=== PATIENT | female | born 1995 | race Caucasian/White ===

== ENCOUNTER 2016-10-01 20:36 | Emergency (ER) | payer OTHER ==
[2016-10-01] MEDS ORDERED: ACETAMINOPHEN TAB 500 MG TAB PO STA (21:52)
[2016-10-01] MEDS ORDERED: IBUPROFEN 800 MG TAB PO STA (21:52)
[2016-10-01] MEDS ORDERED: ONDANSETRON ODT 4 MG TAB PO STA (21:52)
--- NOTE | 2016-10-01 21:57 | ED ---
General Adult HPI - General Chief complaint: Nausea/Vomiting/Diarrhea Stated complaint: Vomiting Time Seen by Provider: 10/01/16 21:20 Source: patient, RN notes reviewed, old records reviewed Mode of arrival: ambulatory Limitations: no limitations - History of Present Illness Initial comments: This is a 21-year-old female the ER for multiple complaints. Patient coming in with a main complaint Pacerone fever. Patient states she had fever yesterday also as well as nausea vomiting and diarrhea. No significant sick contacts or travel history. Patient has no specific medical history aside for thyroid disease. No blood in her vomit or stool. Patient states she also has mild cramping mild abdominal pain and recent vaginal bleeding. She states she has not had a period in over a year is been being evaluated on the outpatient basis by her family doctor for reason for amenorrhea. - Related Data Home Medications Medication Instructions Recorded Confirmed Acyclovir 400 mg PO BID PRN 04/28/16 10/01/16 Citalopram Hydrobromide [CeleXA] 40 mg PO DAILY 04/28/16 10/01/16 EPINEPHrine [Epipen 2-Russ] 0.3 mg IM ONCE PRN 04/28/16 10/01/16 Acetaminophen Tab [Tylenol Tab] 650 mg PO Q6H PRN 10/01/16 10/01/16 Ascorbic Acid [Vitamin C] 500 mg PO DAILY 10/01/16 10/01/16 Calcium Carbonate [Calcium] 600 mg PO DAILY 10/01/16 10/01/16 Garcinia Cambogia 1 tab PO DAILY 10/01/16 10/01/16 Magnesium Oxide 400 mg PO DAILY 10/01/16 10/01/16 Previous Rx's Medication Instructions Recorded Nitrofurantoin Monohyd/M-Cryst 100 mg PO Q12HR #14 cap 10/01/16 [Macrobid] Ondansetron [Zofran] 4 mg PO Q8HR PRN #30 tab 10/01/16 Allergies Allergy/AdvReac Type Severity Reaction Status Date / Time Bleach (Sodium Hypochlorite) Allergy Rash/Hives Verified 10/01/16 21:11 erythromycin base Allergy Rash/Hives Verified 10/01/16 21:11 [Erythromycin Base] Penicillins Allergy Anaphylaxis Verified 10/01/16 21:11 Review of Systems ROS Statement: Those systems with pertinent positive or pertinent negative responses have been documented in the HPI. ROS Other: All systems not noted in ROS Statement are negative. Past Medical History Past Medical History: Thyroid Disorder History of Any Multi-Drug Resistant Organisms: None Reported Past Surgical History: No Surgical Hx Reported Past Psychological History: Bipolar, Depression Smoking Status: Current every day smoker Past Alcohol Use History: Rare Past Drug Use History: Marijuana General Exam Limitations: no limitations General appearance: alert, in no apparent distress, obese Head exam: Present: atraumatic, normocephalic, normal inspection Eye exam: Present: normal appearance, PERRL, EOMI. Absent: scleral icterus, conjunctival injection, periorbital swelling ENT exam: Present: normal exam, mucous membranes moist Neck exam: Present: normal inspection. Absent: tenderness, meningismus, lymphadenopathy Respiratory exam: Present: normal lung sounds bilaterally. Absent: respiratory distress, wheezes, rales, rhonchi, stridor Cardiovascular Exam: Present: regular rate, normal rhythm, normal heart sounds. Absent: systolic murmur, diastolic murmur, rubs, gallop, clicks GI/Abdominal exam: Present: soft, normal bowel sounds. Absent: distended, tenderness, guarding, rebound, rigid Extremities exam: Present: normal inspection, full ROM, normal capillary refill. Absent: tenderness, pedal edema, joint swelling, calf tenderness Back exam: Present: normal inspection Neurological exam: Present: alert, oriented X3, CN II-XII intact Psychiatric exam: Present: normal affect, normal mood Skin exam: Present: warm, dry, intact, normal color. Absent: rash Course Vital Signs 10/01/16 10/01/16 20:40 23:58 Temperature 98.2 F 98.1 F Pulse Rate 104 H 75 Respiratory 16 18 Rate Blood Pressure 181/103 161/85 O2 Sat by Pulse 96 98 Oximetry - Reevaluation(s) Reevaluation #1: 10/01/16 21:57 Patient's improvement with symptomatic control Reevaluation #2: 10/01/16 22:45 At this time patient's symptoms are resolved, no abdominal pain Medical Decision Making - Medical Decision Making 21 female ER for evaluation nausea vomiting diarrhea, fever yesterday. Patient' s fevers control symptoms improved tolerating oral intake. Patient has no abdominal pain on exam, ultrasound and x-ray are negative for acute disease. Patient with urinary tract infection, which is appropriately - Lab Data Lab Results 10/01/16 10/01/16 Range/Units 21:41 21:41 Urine Color Yellow Urine Appearance Cloudy H (Clear) Urine pH 7.0 (5.0-8.0) Ur Specific [place] 1.016 (1.001-1.035) Urine Protein Trace H (Negative) Urine Glucose (UA) Negative (Negative) Urine Ketones Negative (Negative) Urine Blood Negative (Negative) Urine Nitrate Negative (Negative) Urine Bilirubin Negative (Negative) Urine Urobilinogen 2.0 (<2.0) mg/dL Ur Leukocyte Esterase Moderate H (Negative) Urine RBC 2 (0-5) /hpf Urine WBC 46 H (0-5) /hpf Ur Squamous Epith Cells 2 (0-4) /hpf Amorphous Sediment Rare H (None) /hpf Urine Mucus Occasional H (None) /hpf Urine HCG, Qual Not Detected (Not Detectd) - Radiology Data Radiology results: report reviewed (X-ray bowel surgeries a chest negative for acute disease, ultrasound negative for acute disease), image reviewed Disposition Clinical Impression: Gastroenteritis, UTI (urinary tract infection), Nausea, DUB (dysfunctional uterine bleeding) Disposition: HOME SELF-CARE Condition: Good Instructions: Urinary Tract Infection in Women (ED), Dysfunctional Uterine Bleeding (ED) Prescriptions: Nitrofurantoin Monohyd/M-Cryst [Macrobid] 100 mg PO Q12HR #14 cap Ondansetron [Zofran] 4 mg PO Q8HR PRN #30 tab PRN Reason: Nausea Referrals: Hiram Peterson DO [Primary Care Provider] - 1-2 days
[2016-10-01 22:15] LABS: Amorphous Sediment,Urine Rare /hpf; Appearance,Urine Cloudy (Clear); Bilirubin,Urine Negative (Negative); Glucose,Urine (UA) Negative (Negative); Ketones,Urine Negative (Negative); Leukocyte Esterase,Urine Moderate (Negative); Mucus,Urine Occasional /hpf; Nitrite,Urine Negative (Negative); Particle Count 4610; Protein,Urine Trace (Negative); RBC,Urine 2 /hpf (0-5); Specific Gravity,Urine 1.016 (1.001-1.035); Squamous Epithelial Cell,Urine 2 /hpf (0-4); UA Billing (MACRO vs. MICRO) MICRO; WBC,Urine 46 /hpf (0-5)
--- NOTE | 2016-10-01 22:34 | XR ---
EXAMINATION TYPE: XR abdomen acute w cxr DATE OF EXAM: 10/01/2016 10:27 PM COMPARISON: Chest radiographs 04/17/2016 and abdominal radiographs 07/18/2014. HISTORY: Nausea vomiting and diarrhea TECHNIQUE: Single view of the chest and 2 views of the abdomen are submitted. FINDINGS: Single view of the chest fails demonstrate evidence for acute pulmonary disease. There is no evidence for pneumoperitoneum. The bowel gas pattern is unremarkable as there is air throughout nondilated small and large bowel. M ild amount of fecal material is suggested in the colon. No sizeable air fluid levels. No mass effects are seen. No unusual calcifications. Spina bifida occulta is suggested in the sacrum. IMPRESSION: Unremarkable study
[2016-10-01] MEDS ORDERED: NITROFURANTOIN MONOHYD/M-CRYST 100 MG CAP PO STA (22:43)
[2016-10-01 23:59] VITALS: BP 161/85; PULSE 75; RESP 18; TEMP 98.1
--- NOTE | 2016-10-02 00:02 | US ---
EXAMINATION TYPE: US pelvic complete DATE OF EXAM: 10/01/2016 11:11 PM COMPARISON: NONE CLINICAL HISTORY: No cycles for 1 year, spotting today, large body habitus. TECHNIQUE: TV Date of LMP: 1 year ago EXAM MEASUREMENTS: Uterus: 7.1 x 4.1 x 2.6cm Endometrial Stripe: 0.9cm Right Ovary: 4.5 x 2.6 x 2.4cm Left Ovary: 4.7 x 2.3 x 2.8cm FINDINGS: 1. Uterus: Anteverted, nabothian cyst within cervix, otherwise wnl 2. Endometrium: wnl 3. Right Ovary: wnl 4. Left Ovary: wnl Spectral, color and waveform doppler imaging shows good arterial and venous flow within the ovaries ; there is no evidence for ovarian torsion. 5. Bilateral Adnexa: wnl 6. Posterior cul-de-sac: wnl IMPRESSION: Essentially normal pelvic ultrasound study.
== END 2016-10-02 00:28 | disposition home or self-care (01) ==
LOC: EC 20:36
DX: K52.9 Noninfective gastroenteritis and colitis, unspecified (principal); N39.0 Urinary tract infection, site not specified; N93.8 Other specified abnormal uterine and vaginal bleeding; F32.9 Major depressive disorder, single episode, unspecified; E66.9 Obesity, unspecified; F17.200 Nicotine dependence, unspecified, uncomplicated; Z88.1 Allergy status to other antibiotic agents; Z88.0 Allergy status to penicillin; Z91.048 Other nonmedicinal substance allergy status; Z79.899 Other long term (current) drug therapy
CPT/HCPCS: 74022; 76830; 81001; 81025; 87086; 93975; 99284

== ENCOUNTER 2016-11-20 01:20 | Emergency (ER) | payer OTHER ==
[2016-11-20] MEDS ORDERED: ACETAMINOPHEN TAB 500 MG TAB PO STA (02:20)
[2016-11-20] MEDS ORDERED: ONDANSETRON 4 MG ODT STARTER PACK 2 TAB BTL PO STA (02:20)
--- NOTE | 2016-11-20 03:28 | ED ---
ENT HPI - General Chief complaint: ENT Stated complaint: sore throat,cough,vomiting Time Seen by Provider: 11/20/16 02:08 Source: patient, RN notes reviewed Mode of arrival: ambulatory Limitations: no limitations - History of Present Illness Initial comments: Patient is a 21-year-old [employer] chief complaint of sinus congestion for approximately 2 days. She does report that she's had a mild fever and a productive cough. She states that she did vomit one time earlier today. Patient has a past medical history of bipolar and depression. She denies any surgical history or history of asthma. She states that she is a smoker. She denies any Motrin or Tylenol today. She states that she did use a nasal decongestant spray yesterday with some mild relief. Patient denies any recent fever, chills, shortness of breath, chest pain, back pain, abdominal pain, nausea vomiting, numbness or tingling, dysuria or hematuria, constipation or diarrhea, headaches or visual changes, or any other current symptoms. - Related Data Home Medications Medication Instructions Recorded Confirmed Acyclovir 400 mg PO BID PRN 04/28/16 10/01/16 Citalopram Hydrobromide [CeleXA] 40 mg PO DAILY 04/28/16 10/01/16 EPINEPHrine [Epipen 2-Russ] 0.3 mg IM ONCE PRN 04/28/16 10/01/16 Acetaminophen Tab [Tylenol Tab] 650 mg PO Q6H PRN 10/01/16 10/01/16 Ascorbic Acid [Vitamin C] 500 mg PO DAILY 10/01/16 10/01/16 Calcium Carbonate [Calcium] 600 mg PO DAILY 10/01/16 10/01/16 Garcinia Cambogia 1 tab PO DAILY 10/01/16 10/01/16 Magnesium Oxide 400 mg PO DAILY 10/01/16 10/01/16 Previous Rx's Medication Instructions Recorded Nitrofurantoin Monohyd/M-Cryst 100 mg PO Q12HR #14 cap 10/01/16 [Macrobid] Ondansetron [Zofran] 4 mg PO Q8HR PRN #30 tab 10/01/16 Fluticasone Nasal [place] [Flonase 2 spr EA NOSTRIL DAILY #1 bottle 11/20/16 Nasal [place]] guaiFENesin-DM 600/30MG [Mucinex 1 each PO Q12HR #14 tab.er.12h 11/20/16 Dm] methylPREDNISolone Dose Pack 4 mg PO DIRECTED #21 package 11/20/16 [Medrol Dose Pack] Allergies Allergy/AdvReac Type Severity Reaction Status Date / Time Bleach (Sodium Hypochlorite) Allergy Rash/Hives Verified 11/20/16 01:26 erythromycin base Allergy Rash/Hives Verified 11/20/16 01:26 [Erythromycin Base] Penicillins Allergy Anaphylaxis Verified 11/20/16 01:26 Review of Systems ROS Statement: Those systems with pertinent positive or pertinent negative responses have been documented in the HPI. ROS Other: All systems not noted in ROS Statement are negative. Past Medical History Past Medical History: Thyroid Disorder History of Any Multi-Drug Resistant Organisms: None Reported Past Surgical History: No Surgical Hx Reported Past Psychological History: Bipolar, Depression Smoking Status: Current every day smoker Past Alcohol Use History: Rare Past Drug Use History: Marijuana General Exam - General Exam Comments Initial Comments: Well-appearing 21-year-old female. No acute distress. Limitations: no limitations General appearance: alert, in no apparent distress Head exam: Present: atraumatic, normocephalic, normal inspection Eye exam: Present: normal appearance, PERRL, EOMI. Absent: scleral icterus, conjunctival injection, periorbital swelling ENT exam: Present: normal exam, normal oropharynx, mucous membranes moist, TM's normal bilaterally, other (Rhinorrhea. Sinus congestion.) Neck exam: Present: normal inspection. Absent: tenderness, meningismus, lymphadenopathy Respiratory exam: Present: normal lung sounds bilaterally. Absent: respiratory distress, wheezes, rales, rhonchi, stridor Cardiovascular Exam: Present: regular rate, normal rhythm, normal heart sounds. Absent: systolic murmur, diastolic murmur, rubs, gallop, clicks GI/Abdominal exam: Present: soft, normal bowel sounds. Absent: distended, tenderness, guarding, rebound, rigid Extremities exam: Present: normal inspection, full ROM, normal capillary refill. Absent: tenderness, pedal edema, joint swelling, calf tenderness Back exam: Present: normal inspection Neurological exam: Present: alert, oriented X3, CN II-XII intact Psychiatric exam: Present: normal affect, normal mood Skin exam: Present: warm, dry, intact, normal color. Absent: rash Course Vital Signs 11/20/16 01:23 Temperature 98.6 F Pulse Rate 102 H Respiratory 20 Rate Blood Pressure 169/94 O2 Sat by Pulse 97 Oximetry Medical Decision Making - Medical Decision Making Patient is a 29-year-old female chief complaint of sinus congestion and nonproductive cough for approximately 2 days. Chest x-ray was reviewed and negative for any acute process. Patient was given a dose of Zofran and Tylenol. Patient influenza and rapid strep are currently pending. Patient's rapid strep and influenza are negative. Given the duration of symptoms is that patient has a viral upper respiratory infection. I will write the patient for recent and and advised her to follow up with primary care physician. I will write the patient for a Medrol Dosepak and flonase. Patient understands treatment plan will comply. Return parameters were discussed. I did write the patient a note for work. - Lab Data Lab Results 11/20/16 11/20/16 Range/Units 02:30 02:30 Influenza Type A RNA Not Detected (Not Detectd) Influenza Type B (PCR) Not Detected (Not Detectd) Group A Strep Rapid Negative (Negative) Disposition Clinical Impression: Upper respiratory infection Disposition: HOME SELF-CARE Condition: Good Instructions: Upper Respiratory Infection (ED) Additional Instructions: Patient advised to rest, increase fluids and to complete prescriptions as directed. Follow-up with primary care physician if symptoms continue persist in 1-2 days. Return to the emergency department if any alarming signs or symptoms occur. Prescriptions: Fluticasone Nasal [place] [Flonase Nasal [place]] 2 spr EA NOSTRIL DAILY #1 bottle guaiFENesin-DM 600/30MG [Mucinex Dm] 1 each PO Q12HR #14 tab.er.12h methylPREDNISolone Dose Pack [Medrol Dose Pack] 4 mg PO DIRECTED #21 package Referrals: Hiram Peterson DO [Primary Care Provider] - 1-2 days Time of Disposition: 03:29
[2016-11-20 03:51] VITALS: BP 152/87; PULSE 93; RESP 18; TEMP 98.4
--- NOTE | 2016-11-20 14:18 | XR ---
EXAM: XR Chest, 2 Views. CLINICAL HISTORY: Reason: Pain TECHNIQUE: Frontal and lateral views of the chest. COMPARISON: Chest radiography 04/07/16 FINDINGS: Lungs: Unremarkable. No consolidation. Pleural space: Unremarkable. No pneumothorax. Heart: Unremarkable. No cardiomegaly. Mediastinum: Unremarkable. Bones/joints: Unremarkable. IMPRESSION: Normal chest
== END 2016-11-20 03:51 | disposition home or self-care (01) ==
LOC: EC 01:20
DX: J06.9 Acute upper respiratory infection, unspecified (principal); R11.10 Vomiting, unspecified; F31.9 Bipolar disorder, unspecified; F17.200 Nicotine dependence, unspecified, uncomplicated; Z88.0 Allergy status to penicillin; Z88.1 Allergy status to other antibiotic agents; Z79.899 Other long term (current) drug therapy
CPT/HCPCS: 87081; 87430; 87502; 71020; 99284; S0119

== ENCOUNTER 2017-01-10 00:37 | Emergency (ER) | payer OTHER ==
[2017-01-10] MEDS ORDERED: KETOROLAC 30 MG/ML 1 ML VIAL IVP STA (00:53)
[2017-01-10] MEDS ORDERED: diphenhydrAMINE 50 MG/ML 1 ML VIAL IVP STA (00:53)
[2017-01-10] MEDS ORDERED: METOCLOPRAMIDE 5 MG/ML 2 ML VIAL IVP STA (00:53)
[2017-01-10] MEDS ORDERED: SODIUM CHLORIDE 0.9% 1,000 ML IV ONE (00:53)
--- NOTE | 2017-01-10 00:56 | ED ---
Headache HPI - General Chief Complaint: Headache Stated Complaint: headache Time Seen by Provider: 01/10/17 00:45 Mode of arrival: ambulatory Limitations: no limitations - History of Present Illness Initial Comments: 21-year-old female patient presents emergency department today for complaints of migraine headache that started 6 days ago. Patient states that she does have a history of migraine headaches but this one has lasted longer and is more painful than her previous headaches. Patient is having some nausea and some photosensitivity with this. Patient states the pain is all over and radiates down into her neck. Patient denies any limits in range of motion to the neck. She reports taking Tylenol, Motrin, caffeine pills, using hot and cold packs, and massage without relief of symptoms. Patient denies any fever, chills, nasal congestion, sore throat, cough, dizziness, or weakness. Patient denies any numbness or tingling anywhere. Patient denies any blurred or double vision. - Related Data Home Medications Medication Instructions Recorded Confirmed Citalopram Hydrobromide [CeleXA] 40 mg PO DAILY 04/28/16 01/10/17 EPINEPHrine [Epipen 2-Russ] 0.3 mg IM ONCE PRN 04/28/16 01/10/17 Acetaminophen Tab [Tylenol Tab] 650 mg PO Q6H PRN 10/01/16 01/10/17 Ascorbic Acid [Vitamin C] 500 mg PO DAILY 10/01/16 01/10/17 Calcium Carbonate [Calcium] 600 mg PO DAILY 10/01/16 01/10/17 Garcinia Cambogia 1 tab PO DAILY 10/01/16 01/10/17 Magnesium Oxide 400 mg PO DAILY 10/01/16 01/10/17 metFORMIN HCL [Glucophage] 850 mg PO BID 01/10/17 01/10/17 Previous Rx's Medication Instructions Recorded Fluticasone Nasal [place] [Flonase 2 spr EA NOSTRIL DAILY #1 bottle 11/20/16 Nasal [place]] Allergies Allergy/AdvReac Type Severity Reaction Status Date / Time Bleach (Sodium Hypochlorite) Allergy Rash/Hives Verified 01/10/17 00:41 erythromycin base Allergy Rash/Hives Verified 01/10/17 00:41 [Erythromycin Base] Penicillins Allergy Anaphylaxis Verified 01/10/17 00:41 Review of Systems ROS Statement: Those systems with pertinent positive or pertinent negative responses have been documented in the HPI. ROS Other: All systems not noted in ROS Statement are negative. Past Medical History Past Medical History: Thyroid Disorder History of Any Multi-Drug Resistant Organisms: None Reported Past Surgical History: No Surgical Hx Reported Past Psychological History: Bipolar, Depression Smoking Status: Current every day smoker Past Alcohol Use History: Rare Past Drug Use History: Marijuana General Exam Limitations: no limitations General appearance: alert, in no apparent distress Eye exam: Present: normal appearance, PERRL, EOMI. Absent: scleral icterus, conjunctival injection, periorbital swelling ENT exam: Present: normal exam, mucous membranes moist Neck exam: Present: normal inspection, full ROM. Absent: tenderness, meningismus, lymphadenopathy Respiratory exam: Present: normal lung sounds bilaterally. Absent: respiratory distress, wheezes, rales, rhonchi, stridor Cardiovascular Exam: Present: regular rate, normal rhythm, normal heart sounds. Absent: systolic murmur, diastolic murmur, rubs, gallop, clicks GI/Abdominal exam: Present: soft, normal bowel sounds. Absent: distended, tenderness, guarding, rebound, rigid Back exam: Present: normal inspection Neurological exam: Present: alert, oriented X3, CN II-XII intact Psychiatric exam: Present: normal affect, normal mood Skin exam: Present: warm, dry, intact, normal color. Absent: rash Course Vital Signs 01/10/17 00:37 Temperature 99.1 F Pulse Rate 111 H Respiratory 20 Rate Blood Pressure 136/84 O2 Sat by Pulse 96 Oximetry Medical Decision Making - Medical Decision Making 21-year-old female patient presents to emergency department today for complaints of headache that has been going on for the last 6 days. Patient was given IV fluids as well as IV Toradol, Benadryl, and Reglan. She states after this regimen her symptoms are not improved at all. Patient did receive a CT of the brain without contrast which showed no acute intracranial abnormalities. Patient is driving herself tonight and therefore is unable to receive any stronger pain medications through the IV. She'll be given a dose of IV Zofran as well as a Fioricet prior to discharge. Patient will be discharged home with instructions to follow-up with her primary care physician in the next 1-2 days for recheck. Patient also instructed to return for any new, worsening, or concerning symptoms. Patient verbalizes understanding and agrees this plan. - Radiology Data Radiology results: report reviewed CT of the brain without contrast reveals no acute intracranial abnormality. Disposition Clinical Impression: Headache Disposition: HOME SELF-CARE Condition: Stable Instructions: Acute Headache (ED) Additional Instructions: Increase fluids. Continue ibuprofen and Tylenol for pain control. Follow-up with primary care physician in one to 2 days for recheck. Return for any new, worsening, or changing symptoms. Referrals: None,Stated [Primary Care Provider] - 1-2 days Time of Disposition: 02:06
--- NOTE | 2017-01-10 01:55 | CT ---
EXAM: CT Head Without Intravenous Contrast. CLINICAL HISTORY: Reason: Pt. c/o headache with nausea X6 days. TECHNIQUE: Axial computed tomography images of the head/brain without intravenous contrast. CTDI is 57.40 mGy and DLP is 943.80 mGy-cm This CT exam was performed using one or more of the following dose reduction techniques: automated exposure control, adjustment of the mA and/or kV according to patient size, and/or use of iterative reconstruction technique. COMPARISON: CT head on 07/17/2015 FINDINGS: Brain: No acute infarct or hemorrhage. No extra-axial fluid collection. No mass effect or midline shift. Ventricles and sulci: Normal. No ventriculomegaly or intraventricular hemorrhage. Skull: Normal. No bony lesion or fracture. Subcutaneous tissues: Normal. Sinuses: Normal. No air-fluid levels or mucosal thickening. Mastoid air cells: Normal. Orbits: Grossly unremarkable. IMPRESSION: No acute intracranial abnormality.
[2017-01-10] MEDS ORDERED: BUTALB/APAP/CAFF 50-325-40MG TAB PO STA (02:08)
[2017-01-10] MEDS ORDERED: ONDANSETRON 4 MG/2 ML VIAL IVP STA (02:08)
[2017-01-10 02:10] VITALS: BP 104/54; PULSE 83; RESP 18; TEMP 98.8
== END 2017-01-10 02:30 | disposition home or self-care (01) ==
LOC: EC 00:37
DX: R51 Headache (principal); R11.0 Nausea; M54.2 Cervicalgia; F31.9 Bipolar disorder, unspecified; F17.200 Nicotine dependence, unspecified, uncomplicated; Z79.84 Long term (current) use of oral hypoglycemic drugs; Z79.899 Other long term (current) drug therapy; Z88.0 Allergy status to penicillin; Z88.1 Allergy status to other antibiotic agents; Z91.048 Other nonmedicinal substance allergy status; Z86.69 Personal history of other diseases of the nervous system and sense organs
CPT/HCPCS: 99283; 96374; 96375 ×3; 96361; 70450; J1200; J2765; J2405; J1885

== ENCOUNTER 2018-01-11 09:57 | Emergency (ER) | payer BC, OTHER ==
[2018-01-11] MEDS ORDERED: ASPIRIN 325 MG TAB PO STA (10:13)
[2018-01-11] MEDS ORDERED: ACETAMINOPHEN TAB 325 MG TAB PO STA (10:15)
--- NOTE | 2018-01-11 10:26 | ED ---
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 She states it was accompanied by occipital headache and left lower extremity numbness. She states the pain has been waxing and waning since, is exacerbated by leaning forward, and alleviates spontaneously after 45 seconds to 1 minute. She states over the past couple of days she has noticed that her Fitbit is reading her heart rate higher than normal with the the max being 117 bpm. She denies any shortness of breath, nausea, or other anginal equivalents. She admits to family history of early [place] in her brother. She admits to a strong family history of unprovoked DVT and PE. She denies personal history of either. Denies any hypertension or hypercholesterolemia but does smoke one pack of cigarettes per day. She denies any recent surgery, active cancer, or hormone replacement therapy. Eyes any chance of . Patient states left lower extremity numbness at improves and started but has not resolved. She denies any weakness in the lower extremity. States [place] headache is not made by any visual changes or focal weakness. Denies any history of pathology with aorta. - Related Data Home Medications Medication Instructions Recorded Confirmed Citalopram Hydrobromide [CeleXA] 40 mg PO DAILY 04/28/16 01/10/17 EPINEPHrine [Epipen 2-Russ] 0.3 mg IM ONCE PRN 04/28/16 01/10/17 Acetaminophen Tab [Tylenol Tab] 650 mg PO Q6H PRN 10/01/16 01/10/17 Ascorbic Acid [Vitamin C] 500 mg PO DAILY 10/01/16 01/10/17 Calcium Carbonate [Calcium] 600 mg PO DAILY 10/01/16 01/10/17 Garcinia Cambogia 1 tab PO DAILY 10/01/16 01/10/17 Magnesium Oxide 400 mg PO DAILY 10/01/16 01/10/17 metFORMIN HCL [Glucophage] 850 mg PO BID 01/10/17 01/10/17 Previous Rx's Medication Instructions Recorded Fluticasone Nasal [place] [Flonase 2 spr EA NOSTRIL DAILY #1 bottle 11/20/16 Nasal [place]] Allergies Allergy/AdvReac Type Severity Reaction Status Date / Time Bleach (Sodium Hypochlorite) Allergy Rash/Hives Verified 01/11/18 10:03 erythromycin base Allergy Rash/Hives Verified 01/11/18 10:03 [Erythromycin Base] Penicillins Allergy Anaphylaxis Verified 01/11/18 10:03 Review of Systems ROS Statement: Those systems with pertinent positive or pertinent negative responses have been documented in the HPI. Review of Systems Constitutional: Denies fever, chills Eyes: Denies change in vision, Denies pain Ears, nose, mouth, throat: Positive headaches, Denies sore throat Cardiovascular: Positive chest pain. Denies palpitations Respiratory: Denies shortness of breath, Denies cough Gastrointestinal: Denies abdominal pain. Denies nausea, vomiting, diarrhea. Genitourinary: Denies hematuria, Denies infections Musculoskeletal: Denies pain, Denies swelling Integumentary: Denies rash Neurological: Denies headache, focal weakness. Positive LLE numbness Psychiatric: Denies anxiety, Denies depression Hematologic/Lymphatic: Denies easy bleeding or bruising ROS Other: All systems not noted in ROS Statement are negative. EKG Findings - EKG Comments: EKG Findings:: Normal sinus rhythm at a rate of [address] segment elevation or depression, prolonged QT, or arrhythmia noted. Similar to EKG from 2014. Past Medical History Past Medical History: Thyroid Disorder Additional Past Medical History / Comment(s): pcos History of Any Multi-Drug Resistant Organisms: None Reported Past Surgical History: No Surgical Hx Reported Past Psychological History: Bipolar, Depression Smoking Status: Current every day smoker Past Alcohol Use History: Rare Past Drug Use History: None Reported, Marijuana General Exam - General Exam Comments Initial Comments: General: Awake, alert, No acute Distress HENT: Normocephalic. Atraumatic Eyes: PERRL. EOMI. No scleral icterus. No injected conjunctiva Neck: Full ROM Chest/Lungs: Clear to auscultation bilaterally. No wheezing, rhonchi, or rales Cardiac: Regular rate, rhythm. No murmurs or rubs. 2+ radial and DP pulses. No lower extremity edema. Abdomen/GI: [Soft, nontender, nondistended. No rebound, guarding, or rigidity. No abdominal bruit Musculoskeletal: Full ROM. No swelling or deformity. Skin: Warm, dry, intact Neurologic: A/Ox3, no weakness, no abnormal gait, no coordination deficit. Finger to nose intact. Reported numbness of S1 dermatome. Limitations: no limitations Course Vital Signs 01/11/18 01/11/18 09:59 11:14 Temperature 98.2 F Pulse Rate 106 H 87 Respiratory 18 16 Rate Blood Pressure 143/89 142/81 O2 Sat by Pulse 98 96 Oximetry Chest Pain MDM - MDM 20-year-old female presenting with chest pain, left [place] numbness, headache. Initial exam patient's awake, alert, no acute distress. VSS. Patient is PERC positive. Well score 1.5. Patient's complaining of chest pain with neurologic deficit however low likelihood that she is having an aortic dissection as the patient's physical exam is unremarkable besides some lower extremity numbness. CVA also low likelihood at this time secondary to patient's intact neurologic status. Patient's laboratory work was unremarkable. Her d- dimer wasn't elevated. Troponin was not elevated. Patient states her symptoms at this time is now resolved. Patient's HEART score is 3. No further emergent workup indicated. At this time the patient stable for outpatient follow-up of her chest pain leg numbness. She is able to ambulate without any distress. She is clear on return to ER instructions as well as following up with her primary care doctor in the next few days. Disposition Clinical Impression: Chest pain, Numbness in left leg Disposition: HOME SELF-CARE Condition: Good Instructions: Chest Pain (ED), Costochondritis (ED) Additional Instructions: Return to emergency Department with any worsening chest pain, shortness of breath, inability to tolerate food or liquids. Referrals: Tonia Miguel MD [STAFF PHYSICIAN] - 1-2 days
[2018-01-11 10:39] LABS: Basophils # (A) 0.1 k/uL (0-0.2); Basophils % (A) 1 %; Eosinophils # (A) 0.4 k/uL (0-0.7); Eosinophils % (A) 3 %; HCT 44.4 % (34.0-46.0); HGB 15.1 gm/dL (11.4-16.0); Lymphocytes % (A) 27 %; MCH 30.3 pg (25.0-35.0); MCHC 34.1 g/dL (31.0-37.0); MCV 88.9 fL (80.0-100.0); Mean Platelet Volume 7.1; Monocytes # (A) 0.6 k/uL (0-1.0); Monocytes % (A) 4 %; Neutrophils # (A) 9.4 k/uL (1.3-7.7); Neutrophils % (A) 64 %; Platelet Count 305 k/uL (150-450); RBC 4.99 m/uL (3.80-5.40); RDW 12.8 % (11.5-15.5); WBC 14.8 k/uL (3.8-10.6)
[2018-01-11 10:46] LABS: HCG,Qualitative Serum Not Detected
[2018-01-11 10:51] LABS: Anion Gap 9 mmol/L; Blood Urea Nitrogen 10 mg/dL (7-17); Calcium 9.1 mg/dL (8.4-10.2); Carbon Dioxide 26 mmol/L (22-30); Chloride 107 mmol/L (98-107); Glucose 102 mg/dL (74-99); Potassium 4.3 mmol/L (3.5-5.1); Sodium 142 mmol/L (137-145)
--- NOTE | 2018-01-11 10:59 | XR ---
EXAMINATION TYPE: XR chest 2V DATE OF EXAM: 01/11/2018 HISTORY: Pain. REFERENCE: Previous study dated 11/20/2016. FINDINGS: The lungs are clear. Pleural spaces are clear. The heart is not enlarged. IMPRESSION: NORMAL CHEST.
[2018-01-11 11:15] VITALS: BP 142/81; PULSE 87; RESP 16
[2018-01-11 11:45] VITALS: TEMP 97.9
== END 2018-01-11 11:44 | disposition home or self-care (01) ==
LOC: EC 09:57
DX: R07.2 Precordial pain (principal); R20.0 Anesthesia of skin; R51 Headache; F32.9 Major depressive disorder, single episode, unspecified; F17.200 Nicotine dependence, unspecified, uncomplicated; Z79.899 Other long term (current) drug therapy; Z79.84 Long term (current) use of oral hypoglycemic drugs; Z91.048 Other nonmedicinal substance allergy status; Z88.1 Allergy status to other antibiotic agents; Z88.0 Allergy status to penicillin
CPT/HCPCS: 36415; 71046; 80048; 84484; 84703; 85025; 85379; 93005; 99285

== ENCOUNTER → 2018-07-17 | Outpatient (CLI) | payer BC, OTHER ==
--- NOTE | 2018-07-22 11:16 | HM ---
HOLTER MONITOR REPORT 24 HOLTER MONITOR: A 24 hour Holter monitor shows sinus rhythm and sinus tachycardia, heart racing from 55- 151 beats per minute. Very occasional premature beats. No arrhythmias. IMPRESSION: Normal 24 Holter monitor recording average heart rate in the 80s. WILMAN / OZN: [id number] /
== END | disposition home or self-care (01) ==
LOC: RADECHMAIN 12:45
PROVIDERS: ATTEND Internal Medicine
DX: R00.2 Palpitations (principal); Z88.0 Allergy status to penicillin; Z88.8 Allergy status to other drugs, medicaments and biological substances
CPT/HCPCS: 93225; 93226

== ENCOUNTER 2022-03-08 10:59 | Emergency (ER) | payer BC, OTHER ==
[2022-03-08 11:26] VITALS: RESP 18; TEMP 98.3
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
[2022-03-08 12:37] LABS: Glucose,Whole Blood 184 mg/dL (75-99)
[2022-03-08 13:05] LABS: Appearance,Urine Clear (Clear); Bilirubin,Urine Negative (Negative); Blood,Urine Negative (Negative); Color,Urine Yellow; Glucose,Urine (UA) 4+ (Negative); Ketones,Urine Negative (Negative); Leukocyte Esterase,Urine Negative (Negative); Nitrite,Urine Negative (Negative); PH, Urine 5.5 (5.0-8.0); Protein,Urine Negative (Negative); Specific Gravity,Urine 1.017 (1.001-1.035); Urobilinogen,Urine <2.0 mg/dL (<2.0)
[2022-03-08 13:34] LABS: Amphetamine Screen,Urine Not Detected (NotDetected); Barbiturate Screen,Urine Not Detected (NotDetected); Benzodiazepines Screen,Urine Not Detected (NotDetected); Cocaine Screen,Urine Not Detected (NotDetected); Methadone Screen, Urine Not Detected (NotDetected); Opiate Screen,Urine Not Detected (NotDetected); Oxycodone Screen, Urine Not Detected (NotDetected); Phencyclidine Screen,Urine Not Detected (NotDetected); Tricyclic Antidepressant,Urine Not Detected (NotDetected); Urn Cannabinoid Scrn Detected (NotDetected)
[2022-03-08 16:09] LABS: Glucose,Whole Blood 182 mg/dL (75-99)
[2022-03-08 22:49] VITALS: BP 128/81; PULSE 73
== END 2022-03-08 22:50 | disposition home or self-care (01) ==
LOC: EC 10:59
DX: F32.A Depression, unspecified (principal); F17.200 Nicotine dependence, unspecified, uncomplicated; E11.9 Type 2 diabetes mellitus without complications; Z88.8 Allergy status to other drugs, medicaments and biological substances; Z20.822 Contact with and (suspected) exposure to COVID-19; Z88.0 Allergy status to penicillin; Z88.1 Allergy status to other antibiotic agents
CPT/HCPCS: 36415; 80306; 81003; 81025; 82075; 87635; 99284

== ENCOUNTER 2023-01-25 09:27 | Emergency (ER) | payer OTHER ==
[2023-01-25 09:38] VITALS: RESP 18
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
[2023-01-25] MEDS ORDERED: KETOROLAC 15 MG/ML 1 ML VIAL IM STA (11:22)
[2023-01-25 11:44] VITALS: BP 149/91; PULSE 81; TEMP 97.8
== END 2023-01-25 11:43 | disposition home or self-care (01) ==
LOC: EC 09:27
DX: S06.0X0A Concussion without loss of consciousness, initial encounter (principal); E11.9 Type 2 diabetes mellitus without complications; F31.9 Bipolar disorder, unspecified; F17.290 Nicotine dependence, other tobacco product, uncomplicated; F12.90 Cannabis use, unspecified, uncomplicated; Z79.84 Long term (current) use of oral hypoglycemic drugs; Z88.0 Allergy status to penicillin; Z88.8 Allergy status to other drugs, medicaments and biological substances; Z88.1 Allergy status to other antibiotic agents; V89.2XXA Person injured in unspecified motor-vehicle accident, traffic, initial encounter; Y92.411 Interstate highway as the place of occurrence of the external cause
CPT/HCPCS: 70450; 71046; 72125; 73502; 81025; 99285

== ENCOUNTER 2023-05-10 10:49 | Emergency (ER) | payer OTHER ==
[2023-05-10 10:53] VITALS: TEMP 98.3
[2023-05-10 11:54] LABS: Amorphous Sediment,Urine Rare /hpf; Appearance,Urine Cloudy (Clear); Bilirubin,Urine Negative (Negative); Blood,Urine Negative (Negative); Color,Urine Light Yellow; Glucose,Urine (UA) Negative (Negative); Ketones,Urine Negative (Negative); Leukocyte Esterase,Urine Small (Negative); Mucus,Urine Occasional /hpf; Nitrite,Urine Negative (Negative); PH, Urine 5.5 (5.0-8.0); Protein,Urine Negative (Negative); RBC,Urine 2 /hpf (0-5); Specific Gravity,Urine 1.011 (1.001-1.035); Squamous Epithelial Cell,Urine 17 /hpf (0-4); Urobilinogen,Urine <2.0 mg/dL (<2.0); WBC,Urine 8 /hpf (0-5)
[2023-05-10] MEDS ORDERED: KETOROLAC 15 MG/ML 1 ML VIAL IVP STA (12:01)
[2023-05-10] MEDS ORDERED: PHENAZOPYRIDINE 200 MG TAB PO STA (12:01)
[2023-05-10] MEDS ORDERED: SODIUM CHLORIDE 0.9% 1,000 ML IV STA (12:02)
[2023-05-10 12:15] LABS: Basophils # (A) 0.1 k/uL (0-0.2); Basophils % (A) 1 %; Eosinophils # (A) 0.1 k/uL (0-0.7); Eosinophils % (A) 1 %; HCT 45.4 % (34.0-46.0); HGB 15.3 gm/dL (11.4-16.0); Lymphocytes # (A) 2.3 k/uL (1.0-4.8); Lymphocytes % (A) 20 %; MCH 30.8 pg (25.0-35.0); MCHC 33.7 g/dL (31.0-37.0); MCV 91.4 fL (80.0-100.0); Mean Platelet Volume 8.5; Monocytes # (A) 0.6 k/uL (0-1.0); Monocytes % (A) 5 %; Neutrophils # (A) 8.2 k/uL (1.3-7.7); Neutrophils % (A) 72 %; Platelet Count 274 k/uL (150-450); RBC 4.96 m/uL (3.80-5.40); RDW 12.7 % (11.5-15.5); WBC 11.5 k/uL (3.8-10.6)
[2023-05-10 12:23] VITALS: BP 135/76; PULSE 88; RESP 18
--- NOTE | 2023-05-10 12:23 | ED ---
Female Urogenital HPI - General Chief complaint: Urogenital Stated complaint: painful urination Time Seen by Provider: 05/10/23 11:24 Source: patient, RN notes reviewed Mode of arrival: ambulatory Limitations: no limitations - History of Present Illness Initial comments: This is a 28-year-old female who presents to the emergency department for dysuria and left flank pain. States that the symptoms started a couple of days ago. She has a history of both kidney stones and UTIs. States that this feels more so like a kidney stone. Most recently had a kidney stone a few years ago. She was able to pass this on her own. She has mild nausea but no vomiting. Denies any fevers, chills, sore throat, cough, dyspnea, chest pain, palpitations, vomiting, diarrhea, or headaches. MD Complaint: dysuria - Related Data Home Medications Medication Instructions Recorded Confirmed Escitalopram Oxalate [Lexapro] 20 mg PO DAILY 01/25/23 01/25/23 busPIRone HCL 15 mg PO BID 01/25/23 01/25/23 sitaGLIPtin [Januvia] 50 mg PO DAILY 01/25/23 01/25/23 Previous Rx's Medication Instructions Recorded Ketorolac [Toradol] 10 mg PO Q6HR PRN #15 tab 05/10/23 Phenazopyridine [Pyridium] 200 mg PO TID PRN #9 tablet 05/10/23 cefUROXime axetiL [Ceftin] 500 mg PO BID 1 Days #2 tab 05/10/23 Allergies Allergy/AdvReac Type Severity Reaction Status Date / Time Bleach (Sodium Hypochlorite) Allergy Rash/Hives Verified 05/10/23 10:52 erythromycin base Allergy Rash/Hives Verified 05/10/23 10:52 [Erythromycin Base] Penicillins Allergy Rash/Hives Verified 05/10/23 10:52 Review of Systems ROS Statement: Those systems with pertinent positive or pertinent negative responses have been documented in the HPI. ROS Other: All systems not noted in ROS Statement are negative. Past Medical History Past Medical History: Diabetes Mellitus, Thyroid Disorder Additional Past Medical History / Comment(s): pcos History of Any Multi-Drug Resistant Organisms: None Reported Past Surgical History: No Surgical Hx Reported Past Psychological History: Bipolar, Depression Smoking Status: Current every day smoker, Vaper Past Alcohol Use History: Rare Past Drug Use History: None Reported, Marijuana General Exam Limitations: no limitations General appearance: alert, in no apparent distress Head exam: Present: atraumatic, normocephalic, normal inspection Respiratory exam: Present: normal lung sounds bilaterally. Absent: respiratory distress, wheezes, rales, rhonchi, stridor Cardiovascular Exam: Present: regular rate, normal rhythm, normal heart sounds. Absent: systolic murmur, diastolic murmur, rubs, gallop, clicks GI/Abdominal exam: Present: soft, tenderness (LLQ), normal bowel sounds. Absent: distended Back exam: Present: CVA tenderness (L). Absent: CVA tenderness (R) Neurological exam: Present: alert, oriented X3, CN II-XII intact Psychiatric exam: Present: normal affect, normal mood Skin exam: Present: warm, dry, intact, normal color. Absent: rash Course Vital Signs 05/10/23 05/10/23 10:50 12:22 Temperature 98.3 F Pulse Rate 100 88 Respiratory 20 18 Rate Blood Pressure 168/97 135/76 O2 Sat by Pulse 99 99 Oximetry Medical Decision Making - Medical Decision Making This is a 28-year-old female who presents to the emergency department for left flank pain and dysuria. Was pt. sent in by a medical professional or institution? @ -No Did you speak to anyone other than the patient for history? @ -No Did you review nursing and triage notes? @ -Yes, and I agree, it is accurate with regards to the patient's symptoms. Were old charts reviewed? @ -No Differential Diagnosis? @ -Differential Flank Pain: UTI, pyelonephritis, kidney stone, musculoskeletal, pancreatitis, cholecystitis, this is not meant to be an all-inclusive list. EKG interpreted by me (3pts min.)? @ -Not obtained X-rays interpreted by me (1pt min.)? @ -Not obtained CT interpreted by me (1pt min.)? @ -Computed tomography scan of the abdomen and pelvis obtained. My interpretation identifies no evidence of a ureteral calculus. U/S interpreted by me (1pt. min.)? @ -Not obtained What testing was considered but not performed? (CT, X-rays, U/S, labs)? Why? @ -None What meds were considered but not given? Why? @ -None Did you discuss the management of the patient with other professionals? @ -No Did you reconcile home meds? @ -No Was smoking cessation discussed for >3mins.? @ -No Was critical care preformed (if so, how long)? @ -No Were there social determinants of health that impacted care today? How? (Homelessness, low income, unemployed, alcoholism, drug addiction, transportation, low edu. Level, literacy, decrease access to med. care, group home, rehab)? @ -No Was there de-escalation of care discussed even if they declined? (Discuss DNR or withdrawal of care, Hospice)? @ -No What co-morbidities impacted this encounter? (DM, HTN, Smoking, COPD, CAD, Cancer, CVA, Hep., AIDS, mental health diagnosis, sleep apnea, morbid obesity)? @ -Morbid obesity Was patient admitted / discharged? @ -Discharged. Lab work obtained revealing leukocytosis and no other actionable findings. Urinalysis is largely contaminated, however there are WBCs present. CT scan of the abd/pelvis reveals no acute process to account for her symptoms. It did identify hepatic steatosis, which the patient is aware of. LFTs are improved when compared with prior values. It did also identify a large disc osteophyte complex at L5-S1. Patient was made aware of this, in that it may cause problems with back pain and spinal canal stenosis in the future, and I advised she follow up on this with her PCP. Will treat the patient for a UTI given the urinary symptoms with leukocytosis and some WBCs in her urine. Rx for Ceftin, Toradol, and Pyridium provided with dosing instructions reviewed. Undiagnosed new problem with uncertain prognosis? @ -None Drug Therapy requiring intensive monitoring for toxicity (Heparin, Nitro, Insulin, Cardizem)? @ -None Were any procedures done? @ -None Diagnosis/symptom? @ -UTI, left flank pain Acute, or Chronic, or Acute on Chronic? @ -Acute Uncomplicated (without systemic symptoms) or Complicated (systemic symptoms)? @ -Uncomplicated Side effects of treatment? @ -None Exacerbation, Progression, or Severe Exacerbation] @ -Not applicable Poses a threat to life or bodily function? @ -No Return precautions reviewed in depth, the patient is instructed to return to the emergency department with any new, worsening, or concerning symptoms. Patient verbalized understanding. This case was discussed in detail with the attending ED physician, Dr. Dubose. Presentation, findings, and treatment plan discussed in detail as well. - Lab Data Result diagrams: 05/10/23 12:03 05/10/23 12:03 Lab Results 05/10/23 05/10/23 05/10/23 Range/Units 11:27 11:27 12:03 WBC 11.5 H (3.8-10.6) k/uL RBC 4.96 (3.80-5.40) m/uL Hgb 15.3 (11.4-16.0) gm/dL Hct 45.4 (34.0-46.0) % MCV 91.4 (80.0-100.0) fL MCH 30.8 (25.0-35.0) pg MCHC 33.7 (31.0-37.0) g/dL RDW 12.7 (11.5-15.5) % Plt Count 274 (150-450) k/uL MPV 8.5 Neutrophils % 72 % Lymphocytes % 20 % Monocytes % 5 % Eosinophils % 1 % Basophils % 1 % Neutrophils # 8.2 H (1.3-7.7) k/uL Lymphocytes # 2.3 (1.0-4.8) k/uL Monocytes # 0.6 (0-1.0) k/uL Eosinophils # 0.1 (0-0.7) k/uL Basophils # 0.1 (0-0.2) k/uL Sodium (137-145) mmol/L Potassium (3.5-5.1) mmol/L Chloride (98-107) mmol/L Carbon Dioxide (22-30) mmol/L Anion Gap mmol/L BUN (7-17) mg/dL Creatinine (0.52-1.04) mg/dL Est GFR (CKD-EPI)AfAm (>60 ml/min/1.73 sqM) Est GFR (CKD-EPI)NonAf (>60 ml/min/1.73 sqM) Glucose (74-99) mg/dL Plasma Lactic Acid Bacilio (0.7-2.0) mmol/L Calcium (8.4-10.2) mg/dL Total Bilirubin (0.2-1.3) mg/dL AST (14-36) U/L ALT (4-34) U/L Alkaline Phosphatase (38-126) U/L Total Protein (6.3-8.2) g/dL Albumin (3.5-5.0) g/dL Urine Color Light Yellow Urine Appearance Cloudy H (Clear) Urine pH 5.5 (5.0-8.0) Ur Specific [place] 1.011 (1.001-1.035) Urine Protein Negative (Negative) Urine Glucose (UA) Negative (Negative) Urine Ketones Negative (Negative) Urine Blood Negative (Negative) Urine Nitrite Negative (Negative) Urine Bilirubin Negative (Negative) Urine Urobilinogen <2.0 (<2.0) mg/dL Ur Leukocyte Esterase Small H (Negative) Urine RBC 2 (0-5) /hpf Urine WBC 8 H (0-5) /hpf Ur Squamous Epith Cells 17 H (0-4) /hpf Amorphous Sediment Rare H (None) /hpf Urine Mucus Occasional H (None) /hpf Urine HCG, Qual Not Detected (Not Detectd) 05/10/23 05/10/23 Range/Units 12:03 12:03 WBC (3.8-10.6) k/uL RBC (3.80-5.40) m/uL Hgb (11.4-16.0) gm/dL Hct (34.0-46.0) % MCV (80.0-100.0) fL MCH (25.0-35.0) pg MCHC (31.0-37.0) g/dL RDW (11.5-15.5) % Plt Count (150-450) k/uL MPV Neutrophils % % Lymphocytes % % Monocytes % % Eosinophils % % Basophils % % Neutrophils # (1.3-7.7) k/uL Lymphocytes # (1.0-4.8) k/uL Monocytes # (0-1.0) k/uL Eosinophils # (0-0.7) k/uL Basophils # (0-0.2) k/uL Sodium 137 (137-145) mmol/L Potassium 3.9 (3.5-5.1) mmol/L Chloride 102 (98-107) mmol/L Carbon Dioxide 24 (22-30) mmol/L Anion Gap 11 mmol/L BUN 10 (7-17) mg/dL Creatinine 0.70 (0.52-1.04) mg/dL Est GFR (CKD-EPI)AfAm >90 (>60 ml/min/1.73 sqM) Est GFR (CKD-EPI)NonAf >90 (>60 ml/min/1.73 sqM) Glucose 170 H (74-99) mg/dL Plasma Lactic Acid Bacilio 0.9 (0.7-2.0) mmol/L Calcium 8.7 (8.4-10.2) mg/dL Total Bilirubin 0.6 (0.2-1.3) mg/dL AST 44 H (14-36) U/L ALT 48 H (4-34) U/L Alkaline Phosphatase 63 (38-126) U/L Total Protein 7.3 (6.3-8.2) g/dL Albumin 4.2 (3.5-5.0) g/dL Urine Color Urine Appearance (Clear) Urine pH (5.0-8.0) Ur Specific [place] (1.001-1.035) Urine Protein (Negative) Urine Glucose (UA) (Negative) Urine Ketones (Negative) Urine Blood (Negative) Urine Nitrite (Negative) Urine Bilirubin (Negative) Urine Urobilinogen (<2.0) mg/dL Ur Leukocyte Esterase (Negative) Urine RBC (0-5) /hpf Urine WBC (0-5) /hpf Ur Squamous Epith Cells (0-4) /hpf Amorphous Sediment (None) /hpf Urine Mucus (None) /hpf Urine HCG, Qual (Not Detectd) - Radiology Data Radiology results: report reviewed, image reviewed Disposition Clinical Impression: UTI (urinary tract infection), Left flank pain Disposition: HOME SELF-CARE Instructions (If sedation given, give patient instructions): Urinary Tract Infection in Women (ED) Additional Instructions: Return to the emergency department with any new, worsening, or concerning symptoms. Take the antibiotic as prescribed for 7 days. Take the Toradol with Tylenol as needed for pain relief. If you choose to take the Toradol, do not take it with any other fznc-tok-mcuatry anti-inflammatories such as ibuprofen, take one or the other. You can take the Pyridium up to 3 times daily as needed for the burning with urination. Follow up with your primary care provider in 1- 2 days. Prescriptions: cefUROXime axetiL [Ceftin] 500 mg PO BID 1 Days #2 tab Phenazopyridine [Pyridium] 200 mg PO TID PRN #9 tablet PRN Reason: Pain Ketorolac [Toradol] 10 mg PO Q6HR PRN #15 tab PRN Reason: Pain Is patient prescribed a controlled substance at d/c from ED?: No Referrals: None,Stated [Primary Care Provider] - 1-2 days Forms: Area PCPs
[2023-05-10 12:25] LABS: ALT 48 U/L (4-34); AST 44 U/L (14-36); African American GFR (CKD) >90 (>60 ml/min/1.73 sqM); Albumin 4.2 g/dL (3.5-5.0); Alkaline Phosphatase 63 U/L (38-126); Anion Gap 11 mmol/L; Blood Urea Nitrogen 10 mg/dL (7-17); Calcium 8.7 mg/dL (8.4-10.2); Carbon Dioxide 24 mmol/L (22-30); Chloride 102 mmol/L (98-107); Glucose 170 mg/dL (74-99); Non-African American GFR(CKD) >90 (>60 ml/min/1.73 sqM); Potassium 3.9 mmol/L (3.5-5.1); Sodium 137 mmol/L (137-145); Total Bilirubin 0.6 mg/dL (0.2-1.3); Total Protein 7.3 g/dL (6.3-8.2)
--- NOTE | 2023-05-10 12:49 | CT ---
EXAMINATION TYPE: CT abdomen pelvis wo con DATE OF EXAM: 05/10/2023 COMPARISON: 12/02/2014 HISTORY: 28-year-old female left flank pain LT flank pain Hx renal stones CT DLP: 1542.4 mGycm. Automated exposure control for dose reduction was used. TECHNIQUE: Contiguous axial scanning of the abdomen and pelvis without IV contrast. Coronal and sagit jo reconstructions performed. FINDINGS: LUNG BASES: No significant abnormality is appreciated. LIVER/GB: Hepatomegaly at 24.0 cm with severe hepatic steatosis. No abnormal gallbladder distention. PANCREAS: No significant abnormality is seen. SPLEEN: No significant abnormality is seen. ADRENALS: No significant abnormality is seen. KIDNEYS: Retroaortic left renal vein. No significant abnormality is seen. No nephrolithiasis or hydro nephrosis. BOWEL: No significant abnormality is seen. Mild stool burden. Normal appendix. LYMPH NODES: No significant abnormality is seen. OTHER: No significant abnormality is seen. PELVIS: Bladder urine distended. Uterus anteverted. Follicular changes in the ovaries. No abnormal fl uid collection the pelvis or pelvic lymphadenopathy. Pelvic phleboliths. BONES: Anterior endplate spondylosis T10-T11. Large posterior disc osteophyte complex L5-S1 may contr ibute to moderate spinal canal stenosis. Along with facet arthropathy, there is moderate to severe ri ght and moderate left neural foraminal stenosis. Mild degenerative change of the hips. IMPRESSION: 1. No nephrolithiasis or hydronephrosis. 2. Hepatomegaly at 24.0 cm with severe hepatic steatosis; correlate with LFTs, lipid profile, and pa tient risk factors. Appropriate clinical management advised. 3. Mild bilateral hip OA. 4. Large disc osteophyte complex at L5-S1 may contribute to moderate spinal canal stenosis here. The re may be moderate to severe right and moderate left neuroforaminal stenosis at this level as well.
[2023-05-10] MEDS ORDERED: ACET/COD 300 MG/30 MG STARTER PACK 6 TAB BTL PO STA (13:03)
== END 2023-05-10 13:23 | disposition home or self-care (01) ==
LOC: EC 10:49
DX: N39.0 Urinary tract infection, site not specified (principal); E11.9 Type 2 diabetes mellitus without complications; F31.9 Bipolar disorder, unspecified; F12.90 Cannabis use, unspecified, uncomplicated; F17.290 Nicotine dependence, other tobacco product, uncomplicated; Z79.899 Other long term (current) drug therapy; Z88.0 Allergy status to penicillin; Z88.8 Allergy status to other drugs, medicaments and biological substances
CPT/HCPCS: 36415; 80053; 83605; 85025; 81001; 81025; 74176; 99284; 96374; 96361; J1885

== ENCOUNTER 2023-05-16 16:19 | Emergency (ER) | payer OTHER ==
[2023-05-16 16:27] VITALS: BP 134/90; PULSE 100; RESP 20; TEMP 98.8
[2023-05-16] MEDS ORDERED: CEPHALEXIN 500 MG CAP PO STA (16:41)
[2023-05-16] MEDS ORDERED: LIDOCAINE 1% INJ 10MG/ML (20 ML MDV) SQ ONE (16:41)
[2023-05-16] MEDS ORDERED: CLINDAMYCIN 150 MG CAP PO STA (16:44)
--- NOTE | 2023-05-16 17:51 | ED ---
Upper Extremity HPI - General Chief Complaint: Extremity Injury, Upper Stated Complaint: rt hand finger edema Time Seen by Provider: 05/16/23 16:33 Source: patient Mode of arrival: ambulatory Limitations: no limitations - History of Present Illness Initial Comments: Patient is a 28-year-old female who presents the emergency department with pain and swelling of her third right finger. Patient states she picked a hangnail a couple days ago and noticed redness and pain in the area yesterday. She denies fever, chills, nausea, vomiting. - Related Data Home Medications Medication Instructions Recorded Confirmed Escitalopram Oxalate [Lexapro] 20 mg PO DAILY 01/25/23 01/25/23 busPIRone HCL 15 mg PO BID 01/25/23 01/25/23 sitaGLIPtin [Januvia] 50 mg PO DAILY 01/25/23 01/25/23 Previous Rx's Medication Instructions Recorded Ketorolac [Toradol] 10 mg PO Q6HR PRN #15 tab 05/10/23 Phenazopyridine [Pyridium] 200 mg PO TID PRN #9 tablet 05/10/23 cefUROXime axetiL [Ceftin] 500 mg PO BID 1 Days #2 tab 05/10/23 Cephalexin [Keflex] 500 mg PO Q6HR #20 cap 05/16/23 Ibuprofen [Motrin] 800 mg PO Q8HR PRN #30 tab 05/16/23 Allergies Allergy/AdvReac Type Severity Reaction Status Date / Time Bleach (Sodium Hypochlorite) Allergy Rash/Hives Verified 05/16/23 16:27 erythromycin base Allergy Rash/Hives Verified 05/16/23 16:27 [Erythromycin Base] Penicillins Allergy Rash/Hives Verified 05/16/23 16:27 Review of Systems ROS Statement: Those systems with pertinent positive or pertinent negative responses have been documented in the HPI. ROS Other: All systems not noted in ROS Statement are negative. Past Medical History Past Medical History: Diabetes Mellitus, Thyroid Disorder Additional Past Medical History / Comment(s): pcos History of Any Multi-Drug Resistant Organisms: None Reported Past Surgical History: No Surgical Hx Reported Past Psychological History: Bipolar, Depression Smoking Status: Current every day smoker, Vaper Past Alcohol Use History: Rare Past Drug Use History: None Reported, Marijuana General Exam Limitations: no limitations General appearance: alert Eye exam: Present: normal appearance, PERRL, EOMI. Absent: scleral icterus, conjunctival injection, periorbital swelling Respiratory exam: Present: normal lung sounds bilaterally. Absent: respiratory distress, wheezes, rales, rhonchi, stridor Cardiovascular Exam: Present: regular rate, normal rhythm, normal heart sounds. Absent: systolic murmur, diastolic murmur, rubs, gallop, clicks Extremities exam: Present: other (Erythema and tenderness lateral to the nail bed minimal swelling and fluctuance) Neurological exam: Present: alert Skin exam: Present: warm, dry, intact, normal color. Absent: rash Course Vital Signs 05/16/23 16:23 Temperature 98.8 F Pulse Rate 100 Respiratory 20 Rate Blood Pressure 134/90 O2 Sat by Pulse 95 Oximetry Medical Decision Making - Medical Decision Making Was pt. sent in by a medical professional or institution (, PA, IOS ARCHITECT, urgent care, hospital, or senior living...) When possible be specific @ -No Did you speak to anyone other than the patient for history (EMS, parent, family, police, friend...)? What history was obtained from this source @ -No Did you review nursing and triage notes (agree or disagree)? Why? @ -I reviewed and agree with nursing and triage notes Were old charts reviewed (outside hosp., previous admission, EMS record, old EKG, old radiological studies, urgent care reports/EKG's, senior living records)? Report findings @ -No old charts were reviewed Differential Diagnosis (chest pain, altered mental status, abdominal pain women, abdominal pain men, vaginal bleeding, weakness, fever, dyspnea, syncope, he adache, dizziness, GI bleed, back pain, seizure, CVA, palpatations, mental health)? @ -paronychia, abscess, cellulitis.This list is not meant to be all-inclusive EKG interpreted by me (3pts min.). @ -As above X-rays interpreted by me (1pt min.). @ -None done CT interpreted by me (1pt min.). @ -None done U/S interpreted by me (1pt. min.). @ -None done What testing was considered but not performed or refused? (CT, X-rays, U/S, labs)? Why? @ -None What meds were considered but not given or refused? Why? @ -None Did you discuss the management of the patient with other professionals (professionals i.e. DrNathalia, PA, IOS ARCHITECT, lab, RT, psych nurse, neonatal social worker, wardrobe assistant, teacher, antisubmarine weapons officer, case management social worker)? Give summary @ -No Was smoking cessation discussed for >3mins.? @ -No Was critical care preformed (if so, how long)? @ -No Were there social determinants of health that impacted care today? How? (Homelessness, low income, unemployed, alcoholism, drug addiction, transportation, low edu. Level, literacy, decrease access to med. care, longterm, rehab)? @ -No Was there de-escalation of care discussed even if they declined (Discuss DNR or withdrawal of care, Hospice)? DNR status @ -No What co-morbidities impacted this encounter? (DM, HTN, Smoking, COPD, CAD, Cancer, CVA, ARF, Chemo, Hep., AIDS, mental health diagnosis, sleep apnea, morbid obesity)? @ -None Was patient admitted / discharged? Hospital course, mention meds given and route, prescriptions, significant lab abnormalities, going to OR and other pertinent info. @ -Patient has paronychia to third right finger. There is minimal swelling and fluctuance. Discussed option of warm compress and antibiotics vs. drainage. Mother urges me to drain it. Patient agrees however during upon numbing patient she pulls hand away. Patient declines procedure due to pain she continues to yell with use of inappropriate language in the hallway. Patient will be discharged with Keflex. She is encouraged to apply warm compress. Discussed return parameters. Undiagnosed new problem with uncertain prognosis? @ -No Drug Therapy requiring intensive monitoring for toxicity (Heparin, Nitro, Insulin, Cardizem)? @ -No Were any procedures done? @ -No Diagnosis/symptom? @ -paronychia Acute, or Chronic, or Acute on Chronic? @ -acute Uncomplicated (without systemic symptoms) or Complicated (systemic symptoms)? @ -uncomplicated Side effects of treatment? @ -No Exacerbation, Progression, or Severe Exacerbation? @ -No Poses a threat to life or bodily function? How? (Chest pain, [place], [place], pneumonia, PE, COPD, DKA, ARF, appy, cholecystitis, CVA, Diverticulitis, Homicidal, Suicidal, threat to staff... and all critical care pts) @ -No Dr. Jimenez is my attending Disposition Clinical Impression: Paronychia Disposition: HOME SELF-CARE Condition: Good Instructions (If sedation given, give patient instructions): Paronychia (ED) Additional Instructions: Apply warm compresses. Take antibiotic as directed. Follow-up with primary care provider in one to 2 days. Return to the emergency department if you experience new, concerning, or worsening symptoms Prescriptions: Cephalexin [Keflex] 500 mg PO Q6HR #20 cap Ibuprofen [Motrin] 800 mg PO Q8HR PRN #30 tab PRN Reason: Pain Is patient prescribed a controlled substance at d/c from ED?: No Referrals: None,Stated [Primary Care Provider] - 1-2 days
[2023-05-16] MEDS ORDERED: IBUPROFEN 800 MG TAB PO STA (17:59)
== END 2023-05-16 18:05 | disposition home or self-care (01) ==
LOC: EC 16:19
DX: L03.011 Cellulitis of right finger (principal); E11.9 Type 2 diabetes mellitus without complications; F31.9 Bipolar disorder, unspecified; F17.290 Nicotine dependence, other tobacco product, uncomplicated; F12.90 Cannabis use, unspecified, uncomplicated; Z79.84 Long term (current) use of oral hypoglycemic drugs; Z79.899 Other long term (current) drug therapy; Z88.6 Allergy status to analgesic agent; Z88.0 Allergy status to penicillin; Z88.8 Allergy status to other drugs, medicaments and biological substances
CPT/HCPCS: 99283; J2001

== ENCOUNTER 2023-11-10 19:45 | Emergency (ER) | payer OTHER ==
[2023-11-10 19:56] VITALS: BP 134/87; PULSE 103; RESP 20; TEMP 98.3
--- NOTE | 2023-11-10 20:10 | ED ---
Extremity Problem HPI - General Chief complaint: Extremity Problem,Nontraumatic Stated complaint: L hip pain Time Seen by Provider: 11/10/23 19:52 Source: patient, RN notes reviewed, old records reviewed Mode of arrival: ambulatory Limitations: no limitations - History of Present Illness Initial comments: This is a 28-year-old female to the ER for evaluation of left hip pain severe left hip pain with history of chronic left hip pain. Patient states she has had x-rays of her hip with no acute findings but is coming in for persistent hip pain to the point where she has ablation go to work tomorrow. No new trauma MD Complaint: extremity pain, joint pain -: week(s) Location: left, lower extremity -: Yes myalgia, Yes arthralgia Radiation: none Severity scale (1-10): 7 Quality: sharp Consistency: intermittent Improves with: nothing Worsens with: nothing Associated Symptoms: denies other symptoms - Related Data Home Medications Medication Instructions Recorded Confirmed Escitalopram Oxalate [Lexapro] 20 mg PO DAILY 01/25/23 01/25/23 busPIRone HCL 15 mg PO BID 01/25/23 01/25/23 sitaGLIPtin [Januvia] 50 mg PO DAILY 01/25/23 01/25/23 Previous Rx's Medication Instructions Recorded Ketorolac [Toradol] 10 mg PO Q6HR PRN #15 tab 05/10/23 Phenazopyridine [Pyridium] 200 mg PO TID PRN #9 tablet 05/10/23 cefUROXime axetiL [Ceftin] 500 mg PO BID 1 Days #2 tab 05/10/23 Cephalexin [Keflex] 500 mg PO Q6HR #20 cap 05/16/23 Ibuprofen [Motrin] 800 mg PO Q8HR PRN #30 tab 05/16/23 Allergies Allergy/AdvReac Type Severity Reaction Status Date / Time Bleach (Sodium Hypochlorite) Allergy Rash/Hives Verified 11/10/23 19:48 dulaglutide [From Trulicity] Allergy Rash/Hives Verified 11/10/23 19:48 erythromycin base Allergy Rash/Hives Verified 11/10/23 19:48 [Erythromycin Base] Penicillins Allergy Rash/Hives Verified 11/10/23 19:48 Review of Systems ROS Statement: Those systems with pertinent positive or pertinent negative responses have been documented in the HPI. ROS Other: All systems not noted in ROS Statement are negative. Past Medical History Past Medical History: COPD, Diabetes Mellitus, Hyperlipidemia, Thyroid Disorder Additional Past Medical History / Comment(s): pcos History of Any Multi-Drug Resistant Organisms: None Reported Past Surgical History: No Surgical Hx Reported Past Psychological History: Bipolar, Depression Smoking Status: Current every day smoker, Vaper Past Alcohol Use History: Rare Past Drug Use History: Marijuana General Exam Limitations: no limitations General appearance: alert, in no apparent distress Head exam: Present: atraumatic, normocephalic, normal inspection Eye exam: Present: normal appearance, PERRL, EOMI. Absent: scleral icterus, conjunctival injection, periorbital swelling ENT exam: Present: normal exam, mucous membranes moist Neck exam: Present: normal inspection. Absent: tenderness, meningismus, lymphadenopathy Respiratory exam: Present: normal lung sounds bilaterally. Absent: respiratory distress, wheezes, rales, rhonchi, stridor Cardiovascular Exam: Present: regular rate, normal rhythm, normal heart sounds. Absent: systolic murmur, diastolic murmur, rubs, gallop, clicks GI/Abdominal exam: Present: soft, normal bowel sounds. Absent: distended, tenderness, guarding, rebound, rigid Extremities exam: Present: normal inspection, full ROM, normal capillary refill. Absent: tenderness, pedal edema, joint swelling, calf tenderness Back exam: Present: normal inspection Neurological exam: Present: alert, oriented X3, CN II-XII intact Psychiatric exam: Present: normal affect, normal mood Skin exam: Present: warm, dry, intact, normal color. Absent: rash Course Vital Signs 11/10/23 19:46 Temperature 98.3 F Pulse Rate 103 H Respiratory 20 Rate Blood Pressure 134/87 O2 Sat by Pulse 96 Oximetry - Reevaluation(s) Reevaluation #1: 11/10/23 20:11 Medical records reviewed Reevaluation #2: 11/10/23 20:12 Patient's pain is improved Reevaluation #3: 11/10/23 20:12 Patient informed of results and questions answered Reevaluation #4: Was pt. sent in by a medical professional or institution (, PA, FUNERAL ASSISTANT, urgent care, hospital, or [facility]...) When possible be specific @ -no Did you speak to anyone other than the patient for history (EMS, parent, family, police, friend...)? What history was obtained from this source @ -no Did you review nursing and triage notes (agree or disagree)? Why? @ -agree Are old charts reviewed (outside hosp., previous admission, EMS record, old EKG, old radiological studies, urgent care reports/EKG's, [facility] records)? Report findings @ -yes Differential Diagnosis (chest pain, altered mental status, abdominal pain women, abdominal pain men, vaginal bleeding, weakness, fever, dyspnea, syncope, headache, dizziness, GI bleed, back pain, seizure, CVA, palpatations, mental health, musculoskeletal)? @ -prior EKG interpreted by me (3pts min.). @ -no X-rays interpreted by me (1pt min.). @ -no CT interpreted by me (1pt min.). @ -no U/S interpreted by me (1pt. min.). @ -no What testing was considered but not performed or refused? (CT, X-rays, U/S, labs)? Why? @ -none What meds were considered but not given or refused? Why? @ -none Did you discuss the management of the patient with other professionals (professionals i.e. , PA, FUNERAL ASSISTANT, lab, RT, psych nurse, social and human services assistant, oracle bpm developer, teacher, disabilities services officer, case operator)? Give summary @ -no Was smoking cessation discussed for >3mins.? @ -no Was critical care preformed (if so, how long)? @ -no Were there social determinants of health that impacted care today? How? (Homelessness, low income, unemployed, alcoholism, drug addiction, transportation, low edu. Level, literacy, decrease access to med. care, [place] [facility], rehab)? @ -none Was there de-escalation of care discussed even if they declined (Discuss DNR or withdrawal of care, Hospice)? DNR status @ -no What co-morbidities impacted this encounter? (DM, HTN, Smoking, COPD, CAD, C ancer, CVA, ARF, Chemo, Hep., AIDS, mental health diagnosis, sleep apnea, morbid obesity)? @ -none Was patient admitted / discharged? Hospital course, mention meds given and route, prescriptions, significant lab abnormalities, going to OR and other pertinent info. @ -28 female to ER today for evaluation of leg pain and hip pain. Discharge patient has adequate pain control is able to ambulate and can be discharged home Undiagnosed new problem with uncertain prognosis? @ -no Drug Therapy requiring intensive monitoring for toxicity (Heparin, Nitro, Insulin, Cardizem)? @ -no Were any procedures done? @ -no Diagnosis/symptom? @ -Leg pain, hip pain Acute, or Chronic, or Acute on Chronic? @ -Acute Uncomplicated (without systemic symptoms) or Complicated (systemic symptoms)? @ -Complicated Side effects of treatment? @ -no Exacerbation, Progression, or Severe Exacerbation? @ -exacerbation Poses a threat to life or bodily function? How? (Chest pain, [place], [place], pneumonia, PE, COPD, DKA, ARF, appy, cholecystitis, CVA, Diverticulitis, Homicidal, Suicidal, threat to staff... and all critical care pts) @ -no Medical Decision Making - Medical Decision Making 28-year-old ER for evaluation of left hip pain. Patient has adequate pain control is able to ambulate and can be discharged home Disposition Clinical Impression: Left hip pain Disposition: HOME SELF-CARE Condition: Good Instructions (If sedation given, give patient instructions): Hip Pain (ED) Is patient prescribed a controlled substance at d/c from ED?: No Referrals: Papa Rollins MD [Primary Care Provider] - 1-2 days Time of Disposition: 20:05
[2023-11-10] MEDS: KETOROLAC 15 MG/ML 1 ML VIAL IM STA (20:17)
[2023-11-10] MEDS: IBUPROFEN 600 MG STARTER PACK 4 TAB BTL PO STA (20:23)
== END 2023-11-10 21:10 | disposition home or self-care (01) ==
LOC: EC 19:45
DX: M25.552 Pain in left hip (principal); E11.9 Type 2 diabetes mellitus without complications; J44.9 Chronic obstructive pulmonary disease, unspecified; F31.9 Bipolar disorder, unspecified; F17.290 Nicotine dependence, other tobacco product, uncomplicated; F12.90 Cannabis use, unspecified, uncomplicated; Z79.84 Long term (current) use of oral hypoglycemic drugs; Z79.899 Other long term (current) drug therapy; Z88.0 Allergy status to penicillin; Z88.1 Allergy status to other antibiotic agents; Z88.8 Allergy status to other drugs, medicaments and biological substances
CPT/HCPCS: 99284; 96372; J1885

== ENCOUNTER 2024-12-08 15:39 | Emergency (ER) | payer OTHER ==
[2024-12-08] MEDS: IBUPROFEN 800 MG TAB PO STA (18:08)
[2024-12-08] MEDS: MORPHINE SULFATE 4 MG/ML SYRINGE IM STA (18:09)
--- NOTE | 2024-12-08 18:51 | XR ---
EXAMINATION TYPE: XR knee complete LT DATE OF EXAM: 12/08/2024 6:24 PM COMPARISON: CLINICAL INDICATION: Female, 29 years old with history of pain; PHH, pain TECHNIQUE: XR knee complete LT 3 views submitted. FINDINGS: No evidence of any acute osseous pathology, soft tissue swelling, or joint effusion is no yesi. Tricompartmental osteophyte formation involving the femoral condyles, tibial plateau and patella . Mild joint space narrowing. IMPRESSION: 1. No acute osseous pathology. 2. Mild tricompartmental osteoarthritic changes. [facility], , 12/08/2024 6:49 PM
--- NOTE | 2024-12-08 19:36 | ED ---
General Adult HPI - General Chief complaint: Extremity Injury, Lower Stated complaint: L knee pain Time Seen by Provider: 12/08/24 16:45 Source: patient, RN notes reviewed, old records reviewed Mode of arrival: wheelchair - History of Present Illness Initial comments: Patient is a 29-year-old female presents emergency department complaining of left knee pain after a slip and fall. Patient states this occurred while she was cleaning up the yard yesterday. Feels she felt a pop in the left knee and has been having worsening pain since. Patient is not on blood thinners. Did not hit her head. Denies any other obvious injuries. Presents for further evaluation. - Related Data Home Medications Medication Instructions Recorded Confirmed Escitalopram Oxalate [Lexapro] 20 mg PO DAILY 01/25/23 01/25/23 busPIRone HCL 15 mg PO BID 01/25/23 01/25/23 sitaGLIPtin [Januvia] 50 mg PO DAILY 01/25/23 01/25/23 Previous Rx's Medication Instructions Recorded Ketorolac [Toradol] 10 mg PO Q6HR PRN #15 tab 05/10/23 Phenazopyridine [Pyridium] 200 mg PO TID PRN #9 tablet 05/10/23 cefuroxime axetiL [Ceftin] 500 mg PO BID 1 Days #2 tab 05/10/23 Cephalexin [Keflex] 500 mg PO Q6HR #20 cap 05/16/23 Ibuprofen [Motrin] 800 mg PO Q8HR PRN #30 tab 05/16/23 Allergies Allergy/AdvReac Type Severity Reaction Status Date / Time Bleach (Sodium Hypochlorite) Allergy Rash/Hives Verified 12/08/24 16:03 dulaglutide [From Trulicity] Allergy Rash/Hives Verified 12/08/24 16:03 erythromycin base Allergy Rash/Hives Verified 12/08/24 16:03 [Erythromycin Base] Penicillins Allergy Rash/Hives Verified 12/08/24 16:03 Review of Systems ROS Statement: Those systems with pertinent positive or pertinent negative responses have been documented in the HPI. Review of Systems: CONST: Denies fever EYES: Denies blurry vision ENT: Denies nasal congestion C/V: Denies Chest pain RESP: Denies shortness of breath GI: Denies abdominal pain : Denies dysuria SKIN: Denies rash. MSK: Endorses left knee pain NEURO: Denies headache ROS Other: All systems not noted in ROS Statement are negative. Past Medical History Past Medical History: COPD, Diabetes Mellitus, Hyperlipidemia, Thyroid Disorder Additional Past Medical History / Comment(s): pcos History of Any Multi-Drug Resistant Organisms: None Reported Past Surgical History: No Surgical Hx Reported Past Psychological History: Bipolar, Depression Smoking Status: Current every day smoker, Vaper Past Alcohol Use History: None Reported Past Drug Use History: Marijuana General Exam - General Exam Comments Initial Comments: General: Appears in mild distress secondary to left knee pain HEAD: Normal with no signs of head trauma. EYES: EOMI. ENT: Hearing grossly intact. RESPIRATORY: No respiratory distress. C/V: Regular rate and rhythm. ABD: Abdomen is nondistended. EXT: No obvious deformity. Reduced range of motion left knee secondary to pain. Able to hold knee in full extension against gravity. Mild generalized edema. Peripheral pulses intact. Neurovasc intact. SKIN: No rashes or lesions observed on exposed skin. NEURO: Alert and oriented. Course Vital Signs 12/08/24 12/08/24 15:59 20:14 Temperature 98.0 F 97.6 F Pulse Rate 100 85 Respiratory 20 17 Rate Blood Pressure 127/83 130/78 O2 Sat by Pulse 97 98 Oximetry Medical Decision Making - Medical Decision Making Was pt. sent in by a medical professional or institution (ALEJANDRA De Oliveira, PROPAGATOR LABORER, urgent care, hospital, or senior living...) When possible be specific @ -No Did you speak to anyone other than the patient for history (EMS, parent, family, police, friend...)? What history was obtained from this source @ -No Did you review nursing and triage notes (agree or disagree)? Why? @ -I reviewed and agree with nursing and triage notes Were old charts reviewed (outside hosp., previous admission, EMS record, old EKG, old radiological studies, urgent care reports/EKG's, senior living records)? Report findings @ -No old charts were reviewed Differential Diagnosis (chest pain, altered mental status, abdominal pain women, abdominal pain men, vaginal bleeding, weakness, fever, dyspnea, syncope, headache, dizziness, GI bleed, back pain, seizure, CVA, palpatations, mental health, musculoskeletal)? @ -Differential Musculoskeletal Muscular strain, contusion, ligament sprain, fracture, arthritis, septic a rthritis, bursitis, cellulitis, muscle spasm, nerve compression, DVT, arterial occlusion, herpes zoster, electrolyte abnormality, tumor.... This is not meant to be in all inclusive list EKG interpreted by me (3pts min.). @ -None done X-rays interpreted by me (1pt min.). @ -Left knee x-ray reveals no obvious acute traumatic injury of the left knee. CT interpreted by me (1pt min.). @ -None done U/S interpreted by me (1pt. min.). @ -None done What testing was considered but not performed or refused? (CT, X-rays, U/S, labs)? Why? @ -None What meds were considered but not given or refused? Why? @ -None Did you discuss the management of the patient with other professionals (professionals i.e. , PA, PROPAGATOR LABORER, lab, RT, psych nurse, social work associate, sorority supervisor, teacher, eeo officer, case maker)? Give summary @ -No Was smoking cessation discussed for >3mins.? @ -No Was critical care preformed (if so, how long)? @ -No Were there social determinants of health that impacted care today? How? (H omelessness, low income, unemployed, alcoholism, drug addiction, transportation, low edu. Level, literacy, decrease access to med. care, custodial, rehab)? @ -No Was there de-escalation of care discussed even if they declined (Discuss DNR or withdrawal of care, Hospice)? DNR status @ -No What co-morbidities impacted this encounter? (DM, HTN, Smoking, COPD, CAD, Cancer, CVA, ARF, Chemo, Hep., AIDS, mental health diagnosis, sleep apnea, morbid obesity)? @ -None Was patient admitted / discharged? Hospital course, mention meds given and route, prescriptions, significant lab abnormalities, going to OR and other pertinent info. @ -Patient presents with left knee pain after twisting it yesterday. Will obtain x-ray. Patient administered analgesia medications. Vitals within acceptable limits. No significant findings on exam other than tenderness on palpation and reduced range of motion. X-ray revealed arthritic changes but no obvious acute fracture. After the patient. She will be given crutches as well as a knee immobilizer. Given pain meds for home and orthopedic follow-up. She was in agreement this plan. I instructed the patient to follow up with their PCP in the next 1-3 days. I provided contact information for follow up with orthopedics. I explained that the patient should return to the emergency department if they experience any worsening symptoms. Strict return precautions were discussed with the patient. The patient expressed understanding of these instructions. I answered all questions that the patient had. The patient was discharged home in good condition with their prescriptions and follow up information. Undiagnosed new problem with uncertain prognosis? @ -No Drug Therapy requiring intensive monitoring for toxicity (Heparin, Nitro, Insulin, Cardizem)? @ -No Were any procedures done? @ -No Diagnosis/symptom? @ -Left knee sprain Acute, or Chronic, or Acute on Chronic? @ -Acute Uncomplicated (without systemic symptoms) or Complicated (systemic symptoms)? @ -Uncomplicated Side effects of treatment? @ -No Exacerbation, Progression, or Severe Exacerbation? @ -No Poses a threat to life or bodily function? How? (Chest pain, [place], [place], pneumonia, PE, COPD, DKA, ARF, appy, cholecystitis, CVA, Diverticulitis, Homicidal, Suicidal, threat to staff... and all critical care pts) @ -Unlikely at this time Disposition Clinical Impression: Left knee sprain Disposition: HOME SELF-CARE Condition: Good Instructions (If sedation given, give patient instructions): Knee Sprain (ED) Is patient prescribed a controlled substance at d/c from ED?: No Referrals: None,Stated [Primary Care Provider] - 1-2 days Bryan Polanco MD [STAFF PHYSICIAN] - 1-2 days Time of Disposition: 19:36
[2024-12-08 20:16] VITALS: BP 130/78; PULSE 85; RESP 17; TEMP 97.6
== END 2024-12-08 20:16 | disposition home or self-care (01) ==
LOC: EC 15:39
DX: S83.92XA Sprain of unspecified site of left knee, initial encounter (principal); F17.290 Nicotine dependence, other tobacco product, uncomplicated; W01.0XXA Fall on same level from slipping, tripping and stumbling without subsequent striking against object, initial encounter
CPT/HCPCS: 73562; 99283; 96372; J2270